=== PATIENT | male | born 1985 | race Caucasian/White ===

== ENCOUNTER 2017-03-12 20:28 | Emergency (ER) | payer MEDICARE ==
[~2017-03-12] VITALS: Ht 185.4 cm; Wt 158.8 kg
[~2017-03-12 20:28] MED LIST: AMOXICILLIN500 M2 PO; PREDNISONE10 MG PO; ZYRTEC10 MG PO
[2017-03-12] MEDS ORDERED: KETOROLAC10 MG PO (21:52)
[2017-03-12] MEDS ORDERED: TESSALON PERLE100 M1 PO (21:52)
[2017-03-12] MEDS ORDERED: AMOXICILLIN500 M2 PO (21:52)
== END 2017-03-12 22:27 | disposition home or self-care (01) ==
LOC: ED 20:28
DX: S20.212A Contusion of left front wall of thorax, initial encounter (principal); J01.00 Acute maxillary sinusitis, unspecified; W18.09XA Striking against other object with subsequent fall, initial encounter; Y93.89 Activity, other specified; Y92.9 Unspecified place or not applicable; Y99.9 Unspecified external cause status